=== PATIENT | female | born 1995 | race Hispanic/Latino ===

== ENCOUNTER 2024-06-12 23:30 | Emergency (ER) | payer SELFPAY ==
[~2024-06-12] VITALS: Ht 149.9 cm; Wt 74.8 kg
[2024-06-13 00:07] LABS: RAPID GROUP A STREP negative (NEGATIVE)
[2024-06-13 00:15] LABS: SARS-CoV-2, RNA, NAAT NEGATIVE SARS CoV-2 (NEGATIVE)
[2024-06-13 00:17] LABS: INFLUENZA TYPE A Negative For Type A (NEGATIVE); INFLUENZA TYPE B Negative For Type B (NEGATIVE)
[2024-06-13 00:33] LABS: APPEARANCE,URINE CLEAR (CLEAR); BILIRUBIN,URINE NEGATIVE (NEGATIVE); COLOR,URINE COLORLESS (YELLOW); GLUCOSE, URINE (UA) NEGATIVE (NEGATIVE); KETONES,URINE NEGATIVE (NEGATIVE); LEUKOCYTE ESTERASE ,URINE NEGATIVE Leu/uL (NEGATIVE); NITRATE,URINE NEGATIVE (NEGATIVE); OCCULT BLOOD,URINE NEGATIVE (NEGATIVE); PROTEIN,URINE NEGATIVE (NEGATIVE); UROBILINOGEN,URINE 0.2 mg/dL (0.2-1.0)
[2024-06-13 00:34] LABS: ADD UA MICROSCOPIC NO
[2024-06-13] MEDS: Solu-medROL 125MG VIAL IM ONE (00:36)
[2024-06-13 00:37] LABS: HCG,QUALITATIVE URINE NEGATIVE (NEGATIVE)
[2024-06-13] MEDS: CLINDAMYCIN 75MG/5ML SUSP PO SCH (00:49)
[2024-06-13] MEDS: ketOROlac 30MG VIAL (30MG/ML) IM ONE (00:49)
[2024-06-13 00:50] LABS: CREATININE 0.6 mg/dL (0.5-1.0); POTASSIUM 3.6 mmol/L (3.5-5.1)
[2024-06-13] MEDS ORDERED: IOHEXOL-350 75 ML VIAL IV ONE (01:12)
[2024-06-13] MEDS: morPHINE 4 MG SYG IVP ONE (02:02)
[2024-06-13] MEDS ORDERED: CLIN-141 PO (02:44)
[2024-06-13] MEDS ORDERED: HYDR-4060 PO (02:44)
[2024-06-13 03:12] VITALS: BP 128/73; PULSE 85; RESP 16; TEMP 97.6; O2SAT 100
== END 2024-06-13 03:14 | disposition home or self-care (01) ==
LOC: EDH 23:30
DX: K08.89 Other specified disorders of teeth and supporting structures (principal); Z20.822 Contact with and (suspected) exposure to COVID-19; K03.81 Cracked tooth; E66.01 Morbid (severe) obesity due to excess calories; Z68.30 Body mass index [BMI] 30.0-30.9, adult
CPT/HCPCS: 99285; 87635; 80048; 87880; 87804 ×2; 81003; 81025; 36415; 96374; 70487; 96372 ×2; J2919; J2270; J1885; Q9967